=== PATIENT | female | born 1995 | race African-American/Black ===

== ENCOUNTER 2017-04-28 02:50 | Emergency (ER) | payer MEDICAID, OTHER ==
[~2017-04-28] VITALS: Ht 170.2 cm; Wt 99.0 kg
[2017-04-28 04:34] VITALS: BP 133/81
== END 2017-04-28 05:53 | disposition left against medical advice (07) ==
LOC: EMS 02:51
DX: Z53.21 Procedure and treatment not carried out due to patient leaving prior to being seen by health care provider (principal)